=== PATIENT | male | born 1955 | race Asian ===

== ENCOUNTER 2016-12-28 04:32 | Emergency (ER) | payer OTHER ==
[~2016-12-28] VITALS: Ht 165.1 cm; Wt 82.0 kg
[2016-12-28] MEDS ORDERED: SODIUM CHLORIDE 0.9% 1,000 ML IV ONE (04:42)
[2016-12-28] MEDS ORDERED: ASPIRIN 325MG TABLET PO NR (05:30)
[2016-12-28 05:37] LABS: HEMATOCRIT. 44.8 % (42.0-52.0); HEMOGLOBIN. 15.6 g/dL (14.0-18.0); LYMPHOCYTES % 10.7 % (20.0-50.0); MEAN CORPUSCULAR HEMOGLOBIN 29.5 pg (28.0-32.0); MEAN PLATELET VOLUME 10.4 fl (7.4-10.4); MONOCYTES % 5.1 % (2.0-8.0); NEUTROPHILS % 83.5 % (40.0-76.0); PLATELET 106 x1000/uL (130-400); RED BLOOD CELL COUNT 5.27 mill/uL (4.7-6.1); RED CELL DISTRIBUTION WIDTH 13.4 % (11.6-14.6)
[2016-12-28 05:38] LABS: BASOPHILS % 0.3 % (0.0-2.0); EOSINOPHILS % 0.4 % (0.0-5.0)
[2016-12-28 05:44] LABS: D-DIMER 0.28 mg/L FEU (<0.50); PROTHROMBIN TIME 10.7 sec
[2016-12-28 05:57] LABS: CARBON DIOXIDE 27 mEq/L (21-32); CHLORIDE 103 mEq/L (98-107); ETHANOL BLOOD < 10 mg/dL; TROPONIN I < 0.02 ng/mL (0.00-0.04)
[2016-12-28] MEDS ORDERED: ASPIRIN 300MG SUPP PR ONE (06:00)
[2016-12-28] MEDS ORDERED: MECLIZINE 25MG TABLET PO ONE (06:15)
[2016-12-28 07:25] VITALS: BP 171/95
== END 2016-12-28 07:40 | disposition short-term general hospital (02) ==
LOC: ER 04:39 → CANBEDREQ 07:47
DX: R55 Syncope and collapse (principal); R42 Dizziness and giddiness; I69.354 Hemiplegia and hemiparesis following cerebral infarction affecting left non-dominant side; Z88.8 Allergy status to other drugs, medicaments and biological substances
CPT/HCPCS: 36415; 70450; 71010; 80053; 82962; 83605; 83880; 84484; 85025; 85379; 85610; 93005; 96360; 96361; 99285; G0482; J7030; Z7610; J8597